=== PATIENT | male | born 1965 | race African-American/Black ===

== ENCOUNTER 2018-01-23 21:35 | Emergency (ER) | payer OTHER ==
[~2018-01-23] VITALS: Ht 185.4 cm; Wt 109.3 kg
--- NOTE | 2018-01-23 22:11 | ED GENERAL ADULT ---
History of Present Illness General Chief Complaint: Animal/Insect Bite Stated Complaint: ANIMAL BITE TO RIGHT HAND Source: patient Exam Limitations: no limitations Vital Signs & Intake/Output Vital Signs & Intake/Output Vital Signs Date Time Temp Pulse Resp B/P B/P Pulse O2 O2 Flow FiO2 Mean Ox Delivery Rate 01/23 2142 98.6 91 18 209/98 98 Room Air Allergies Coded Allergies: NO KNOWN ALLERGIES (01/06/14) Reconcile Medications Amoxicillin/Potassium Clav (Augmentin 875-125 Tablet) 875 MG-125 MG TABLET 1 TAB PO BID BITE Triage Note: PT FROM HOME C/O BAT BITE TO RIGHT HAND 3RD DIGIT ABOUT 1 HR PRIOR TO ARRIVAL. PT STATES HE WAS WASHING DISHES AND THEN A BAT CAME OUT OF THE POT AND BIT PT ON RIGHT HAND. PT A&0X3. BP ELEVATED 209/98 INTRIAGE. AFEBRILE. Triage Nurses Notes Reviewed? yes Onset: Abrupt Duration: minute(s): Timing: single episode today HPI: 01/23/18 53 year old male presents to the Emergency Department for a bat bite to his right hand third digit of his hand. He said he was doing dishes and there was a bat that bit him. He has called animal control who is coming to get the bat. He denies other injuries or complaints. Past History Travel History Traveled to [place] past 21 day No Medical History Any Pertinent Medical History? see below for history Neurological: NONE EENT: NONE Cardiovascular: NONE Respiratory: NONE Gastrointestinal: NONE Hepatic: NONE Renal: NONE Musculoskeletal: NONE Psychiatric: NONE Endocrine: NONE Surgical History Surgical History: knee replacement (bilateral replacment) Psychosocial History What is your primary language Irish Tobacco Use: Never used Family History Hx Contributory? No Review of Systems Review of Systems Constitutional: Reports: see HPI. Denies: fever. EENTM: Reports: no symptoms. Denies: visual changes. Respiratory: Reports: no symptoms. Cardiovascular: Reports: no symptoms. GI: Reports: no symptoms. Genitourinary: Reports: no symptoms. Musculoskeletal: Reports: no symptoms. Skin: Reports: see HPI. Neurological/Psychological: Reports: no symptoms. Hematologic/Endocrine: Reports: no symptoms. Immunologic/Allergic: Reports: no symptoms. Physical Exam Physical Exam General Appearance: well developed/nourished, alert, awake, anxious, mild distress Head: atraumatic, normal appearance Eyes: Bilateral: normal appearance, PERRL, EOMI. Ears, Nose, Throat: normal ENT inspection Neck: normal inspection Respiratory: no respiratory distress Cardiovascular: regular rate/rhythm Peripheral Pulses: 4+ radial (R) Back: normal range of motion Extremities: tenderness Neurologic/Psych: no motor/sensory deficits, awake, alert, oriented x 3 Skin: intact, puncture wound to the palmar aspect of the right third digit of the hand Core Measures ACS in differential dx? No CVA/TIA Diagnosis: No Sepsis Present: No Sepsis Focused Exam Completed? No Progress Differential Diagnoses I considered the following diagnoses in my evaluation of the patient: Plan of Care: The patient will follow-up in the ED for subsequent rabies vaccines, he was given Augmentin. Tetanus shot was given. He will return to the ED if increasing pain to the finger or fever. He is called out of control to retrieve the bat. He will have his blood pressure repeated when he returns to the ED in a week. Initial ED EKG: none Departure Departure Disposition: HOME OR SELF CARE Condition: Stable Clinical Impression Primary Impression: Bat bite of finger Referrals: Patient Has No Primary Care Dr (PCP/Family) Departure Forms: Customer Survey General Discharge Information Prescriptions: Current Visit Scripts Amoxicillin/Potassium Clav (Augmentin 875-125 Tablet) 1 TAB PO BID #20 TAB Critical Care Note Critical Care Note Critical Care Time: non-applicable
[2018-01-23] MEDS ORDERED: AUGMENTIN 875-1 EACH PO (22:35)
[2018-01-23 23:30] VITALS: BP 178/84
== END 2018-01-23 23:45 ==
LOC: ERH 21:35
DX: S61.252A Open bite of right middle finger without damage to nail, initial encounter (principal); W53.81XA Bitten by other rodent, initial encounter; Y93.G1 Activity, food preparation and clean up; Y92.9 Unspecified place or not applicable
CPT/HCPCS: 90376; 90471; 90714; J3490